=== PATIENT | female | born 1985 | race Caucasian/White ===

== ENCOUNTER 2022-01-12 08:24 | Emergency (ER) | payer MEDICAID, OTHER ==
[~2022-01-12] VITALS: Ht 162.6 cm; Wt 54.9 kg
--- NOTE | 2022-01-12 08:42 | ED GU-Female ---
General Chief Complaint: OB < 20 WEEKS Stated Complaint: LOWER BACK RIGHT SIDE PAIN 13 WKS PREG History of Present Illness Date Seen by Provider: Jan 12, 2022 Time Seen by Provider: 08:39 Initial Comments 36-year-old primigravida with LMP of October 11 with JED of 07/18/21, is here with c/o right flank pain and RLQ and linda-umbilical pain which began yesterday evening and is worsening. Pt has had a history of kidney stones in her teens. Pt has been drinking enough water intermittently with periods of not drinking enough water. Pt had one episode of vomiting yesterday. Denies fever, diarrhea, nausea, constipation, chest pain, vaginal bleeding or discharge, hematuria. Allergies and Home Medications Allergies Coded Allergies: codeine (Verified Allergy, Unknown, 01/12/22) lidocaine (Verified Allergy, Unknown, 01/12/22) Patient Home Medication List Home Medication List Reviewed: Yes Review of Systems Review of Systems Constitutional: no symptoms reported EENTM: no symptoms reported Respiratory: no symptoms reported Cardiovascular: no symptoms reported Gastrointestinal: abdominal pain, vomiting Genitourinary: flank pain Musculoskeletal: no symptoms reported Skin: no symptoms reported Psychiatric/Neurological: No Symptoms Reported Endocrine: No Symptoms Reported Hematologic/Lymphatic: No Symptoms Reported Physical Exam Vital Signs Vital Signs - First Documented 01/12/22 08:30 Temp 36.5 Pulse 87 Resp 16 B/P (MAP) 122/86 (98) Pulse Ox 99 O2 Delivery Room Air Capillary Refill : Height, Weight, BMI Height: '" Weight: lbs. oz. kg; BMI Method: General Appearance: WD/WN, no apparent distress HEENT: PERRL/EOMI Neck: non-tender, full range of motion, supple Cardiovascular: normal peripheral pulses, regular rate, rhythm Respiratory: chest non-tender, lungs clear Gastrointestinal: normal bowel sounds, soft, no organomegaly, tenderness (CVA tenderness as well as RLQ tenderness, and periumbilical tenderness) Back: normal inspection, CVA tenderness (R) Extremities: normal range of motion Neurologic/Psychiatric: alert, normal mood/affect, oriented x 3 Skin: normal color Progress/Results/Core Measures Suspected Sepsis SIRS Temperature: Pulse: Respiratory Rate: Laboratory Tests 01/12/22 09:00: White Blood Count 20.3H Blood Pressure / Mean: Laboratory Tests 01/12/22 09:00: Creatinine 0.52L, Platelet Count 214, Total Bilirubin 0.3 Results/Orders Lab Results Laboratory Tests Test 01/12/22 08:30 01/12/22 09:00 Range/Units Urine Color YELLOW Urine Clarity CLEAR Urine pH 6.0 5-9 Urine Specific [place] >=1.030 1.016-1.022 Urine Protein 1+ H NEGATIVE Urine Glucose (UA) NEGATIVE NEGATIVE Urine Ketones NEGATIVE NEGATIVE Urine Nitrite NEGATIVE NEGATIVE Urine Bilirubin NEGATIVE NEGATIVE Urine Urobilinogen 0.2 < = 1.0 MG/DL Urine Leukocyte Esterase NEGATIVE NEGATIVE Urine RBC (Auto) 3+ H NEGATIVE Urine RBC 10-25 H /HPF Urine WBC 0-2 /HPF Urine Squamous Epithelial Cells NONE /HPF Urine Crystals NONE /LPF Urine Bacteria TRACE /HPF Urine Casts NONE /LPF Urine Mucus LARGE H /LPF Urine Culture Indicated NO Urine Opiates Screen NEGATIVE NEGATIVE Urine Oxycodone Screen NEGATIVE NEGATIVE Urine Methadone Screen NEGATIVE NEGATIVE Urine Propoxyphene Screen NEGATIVE NEGATIVE Urine Barbiturates Screen NEGATIVE NEGATIVE Ur Tricyclic Antidepressants Screen NEGATIVE NEGATIVE Urine Phencyclidine Screen NEGATIVE NEGATIVE Urine Amphetamines Screen NEGATIVE NEGATIVE Urine Methamphetamines Screen NEGATIVE NEGATIVE Urine Benzodiazepines Screen NEGATIVE NEGATIVE Urine Cocaine Screen NEGATIVE NEGATIVE Urine Cannabinoids Screen POSITIVE H NEGATIVE White Blood Count 20.3 H 4.3-11.0 10^3/uL Red Blood Count 4.34 3.80-5.11 10^6/uL Hemoglobin 13.5 11.5-16.0 g/dL Hematocrit 38 35-52 % Mean Corpuscular Volume 88 80-99 fL Mean Corpuscular Hemoglobin 31 25-34 pg Mean Corpuscular Hemoglobin Concent 35 32-36 g/dL Red Cell Distribution Width 13.0 10.0-14.5 % Platelet Count 214 130-400 10^3/uL Mean Platelet Volume 9.9 9.0-12.2 fL Immature Granulocyte % (Auto) 1 % Neutrophils (%) (Auto) 85 H 42-75 % Lymphocytes (%) (Auto) 7 L 12-44 % Monocytes (%) (Auto) 5 0-12 % Eosinophils (%) (Auto) 1 0-10 % Basophils (%) (Auto) 0 0-10 % Neutrophils # (Auto) 17.4 H 1.8-7.8 10^3/uL Lymphocytes # (Auto) 1.5 1.0-4.0 10^3/uL Monocytes # (Auto) 1.0 0.0-1.0 10^3/uL Eosinophils # (Auto) 0.3 0.0-0.3 10^3/uL Basophils # (Auto) 0.1 0.0-0.1 10^3/uL Immature Granulocyte # (Auto) 0.1 0.0-0.1 10^3/uL Neutrophils % (Manual) 88 % Lymphocytes % (Manual) 7 % Monocytes % (Manual) 3 % Eosinophils % (Manual) 2 % Sodium Level 137 135-145 MMOL/L Potassium Level 3.8 3.6-5.0 MMOL/L Chloride Level 106 98-107 MMOL/L Carbon Dioxide Level 21 21-32 MMOL/L Anion Gap 10 5-14 MMOL/L Blood Urea Nitrogen 6 L 7-18 MG/DL Creatinine 0.52 L 0.60-1.30 MG/DL Estimat Glomerular Filtration Rate 124 BUN/Creatinine Ratio 12 Glucose Level 102 70-105 MG/DL Calcium Level 9.4 8.5-10.1 MG/DL Corrected Calcium 9.3 8.5-10.1 MG/DL Magnesium Level 1.7 1.6-2.4 MG/DL Total Bilirubin 0.3 0.1-1.0 MG/DL Aspartate Amino Transf (AST/SGOT) 18 5-34 U/L Alanine Aminotransferase (ALT/SGPT) 17 0-55 U/L Alkaline Phosphatase 60 40-136 U/L Total Protein 6.4 6.4-8.2 GM/DL Albumin 4.1 3.2-4.5 GM/DL My Orders Orders - SARA VALDEZ MD Urinalysis (01/12/22 08:30) Cbc With Automated Diff (01/12/22 08:44) Comprehensive Metabolic Panel (01/12/22 08:44) Drug Screen Stat (Urine) (01/12/22 08:44) Magnesium (01/12/22 08:44) Manual Differential (01/12/22 09:00) Vital Signs/I&O 01/12/22 08:30 Temp 36.5 Pulse 87 Resp 16 B/P (MAP) 122/86 (98) Pulse Ox 99 O2 Delivery Room Air Capillary Refill : Progress Note : Progress Note 1. PRIMIGRAVIDA: RIGHT FLANK PAIN & ABDOMINAL PAIN: MARIJUANA ABUSE - UA is positive for RBCs only -CBC: WBC is elevated at 20 with a positive left shift - UDS: Positive for marijuana - Pt cannot have CT due to , willneed ultrasound abdomen which we do not have in [facility] today, so will transfer to [facility] to have an ultrasound . Although kidney stone is likely, still need to rule out other abdominal pathology, and abdominal pain may also be due to just to marijuana use - Advised not to use marijuana or any other drugs while Departure Impression Primary Impression: Flank pain in patient Additional Impression: Marijuana abuse Disposition: 02 XFER SHT-TRM HOSP Condition: Stable Transfer Transfer Reason: Exceeds level of care Time Spoke to Accepting Phy: 09:37 Transfer Progress Notes Will transfer to [place] ER for ultrasound . Discussed with Dr Fitch and accepted for ER to ER transfer Transfer Facility: [facility] Method of Transfer: Private Vehicle Departure-Patient Inst. Referrals: MIKE PENA MD (PCP/Family) Primary Care Physician SARA VALDEZ MD Jan 12, 2022 08:42
[2022-01-12 08:46] LABS: BACTERIA,URINE TRACE /HPF; BILIRUBIN,URINE NEGATIVE (NEGATIVE); CLARITY,URINE CLEAR; COLOR,URINE YELLOW; GLUCOSE, URINE (UA) NEGATIVE (NEGATIVE); KETONES,URINE NEGATIVE (NEGATIVE); LEUKOCYTE ESTERASE ,URINE NEGATIVE (NEGATIVE); NITRITE,URINE NEGATIVE (NEGATIVE); PROTEIN,URINE 1+ (NEGATIVE); WBC,URINE 0-2 /HPF
[2022-01-12 09:04] LABS: BASOPHILS # (AUTO) 0.1 10^3/uL (0.0-0.1); BASOPHILS % (AUTO) 0 % (0-10); EOSINOPHILS # (AUTO) 0.3 10^3/uL (0.0-0.3); EOSINOPHILS % (AUTO) 1 % (0-10); HEMATOCRIT 38 % (35-52); HEMOGLOBIN 13.5 g/dL (11.5-16.0); LYMPHOCYTES # (AUTO) 1.5 10^3/uL (1.0-4.0); LYMPHOCYTES % (AUTO) 7 % (12-44); MEAN CORPUSCULAR HEMOGLOBIN 31 pg (25-34); MEAN CORPUSCULAR HGB CONC 35 g/dL (32-36); MEAN CORPUSCULAR VOLUME 88 fL (80-99); MEAN PLATELET VOLUME 9.9 fL (9.0-12.2); MONOCYTES % (AUTO) 5 % (0-12); NEUTROPHILS # (AUTO) 17.4 10^3/uL (1.8-7.8); NEUTROPHILS % (AUTO) 85 % (42-75); PLATELET COUNT 214 10^3/uL (130-400); WHITE BLOOD COUNT 20.3 10^3/uL (4.3-11.0)
[2022-01-12 09:10] LABS: AMPHETAMINE SCREEN, URINE NEGATIVE (NEGATIVE); BARBITURATE SCREEN URINE NEGATIVE (NEGATIVE); BENZODIAZEPINES SCREEN URINE NEGATIVE (NEGATIVE); CANNABINOID SCREEN, URINE POSITIVE (NEGATIVE); COCAINE SCREEN URINE NEGATIVE (NEGATIVE); METHADONE STAT NEGATIVE (NEGATIVE); OPIATE SCREEN URINE NEGATIVE (NEGATIVE); OXYCODONE STAT NEGATIVE (NEGATIVE); PROPOXYPHENE STAT NEGATIVE (NEGATIVE); TRICYCLIC ANTIDEPRESSANTS SCRE NEGATIVE (NEGATIVE)
[2022-01-12 09:21] LABS: EOSINOPHILS % (MANUAL) 2 %; LYMPHOCYTES % (MANUAL) 7 %; MONOCYTES % (MANUAL) 3 %; NEUTROPHILS % (MANUAL) 88 %
[2022-01-12 09:24] LABS: ALBUMIN 4.1 GM/DL (3.2-4.5); BILIRUBIN,TOTAL 0.3 MG/DL (0.1-1.0); CALCIUM 9.4 MG/DL (8.5-10.1); CREATININE SERUM 0.52 MG/DL (0.60-1.30); MAGNESIUM 1.7 MG/DL (1.6-2.4); POTASSIUM 3.8 MMOL/L (3.6-5.0); TOTAL PROTEIN 6.4 GM/DL (6.4-8.2)
[2022-01-12] MEDS ORDERED: ONDANSETRON 4 MG (ZOFRAN) ORAL DISSOLVE TAB PO STA (09:29)
[2022-01-12] MEDS ORDERED: ONDANSETRON 4 MG (ZOFRAN) ORAL DISSOLVE TAB ONE (09:35)
[2022-01-12] MEDS ORDERED: NS IV 1000 ML 1,000 ML IV STA (11:13)
[2022-01-12] MEDS ORDERED: morphine INJ 10 MG/ML 1ML (SYR OR VIAL) IVP ONE ×2 (11:15→12:30)
--- NOTE | 2022-01-12 11:19 | ED GU-Female ---
General Chief Complaint: OB < 20 WEEKS Stated Complaint: LOWER BACK RIGHT SIDE PAIN 13 WKS PREG Nursing Triage Note: Patient reports she is 13 weeks , states this is her first . She states she began having right lower back pain, nausea/vomiting, and lower abdominal cramping yesterday afternoon. She reports her symptoms are intermittent, denies any unusual vaginal discharge or bleeding. Source: patient Exam Limitations: no limitations History of Present Illness Date Seen by Provider: Jan 12, 2022 Time Seen by Provider: 11:16 Initial Comments Patient is a 36-year-old female who presents the ED with right flank pain. This pain started yesterday evening described as sharp. Pain eventually improved and become intermittent throughout the night. Pain became constant today with some pain in her right lower quadrant. She is currently 13 weeks . Denies of any urinary symptoms, vaginal bleeding or vaginal discharge. She is currently following up with Dr. Landeros [employer] in the [facility]. Patient Was seen at the ER at [place] was transferred here for ultrasound. She did have notable hematuria with an elevated white blood count of 20. Normal kidney function. Patient is requesting something for pain. Was given Zofran with improvement of her nausea. She did vomited 2 or 3 times a day secondary to pain. History of kidney stones and states this feels very similar to her kidney stone. Allergies and Home Medications Allergies Coded Allergies: codeine (Verified Allergy, Unknown, 01/12/22) lidocaine (Verified Allergy, Unknown, 01/12/22) Patient Home Medication List Home Medication List Reviewed: Yes Hydrocodone/Acetaminophen (Hydrocodone-Acetamin 5-325 mg) 5 Mg-325 Mg Tablet, 1 TAB PO Q4H PRN for PAIN-MODERATE (5-7) Prescribed by: HENRIETTA CORONEL on 01/12/22 1420 Metoclopramide HCl (Reglan) 10 Mg Tablet, 10 MG PO TID PRN for NAUSEA-1ST LINE Prescribed by: HENRIETTA CORONEL on 01/12/22 1420 Review of Systems Review of Systems Constitutional: No chills, No diaphoresis, No weakness EENTM: No blurred vision, No double vision Respiratory: No cough, No dyspnea on exertion Cardiovascular: No chest pain Gastrointestinal: abdominal pain; No diarrhea; nausea, vomiting Genitourinary: denies burning, denies frequency; hematuria Musculoskeletal: back pain; No joint pain, No muscle stiffness, No muscle cramps Skin: No change in color, No change in hair/nails All Other Systemes Reviewed Negative Unless Noted: Yes Past Epzbghj-Sqkhvn-Xbzwse Hx Patient Social History Tobacco Use?: Yes Tobacco type used: Cigarettes Smoking Status: Current Everyday Smoker Substance use?: No Alcohol Use?: No Pt feels they are or have been: No Past Medical History Surgery/Hospitalization HX: MS Last Menstrual Period: October 11, 2021 Physical Exam Vital Signs Vital Signs - First Documented 01/12/22 08:30 Temp 36.5 Pulse 87 Resp 16 B/P (MAP) 122/86 (98) Pulse Ox 99 O2 Delivery Room Air Capillary Refill : Less Than 3 Seconds Height, Weight, BMI Height: '" Weight: lbs. oz. kg; 20.00 BMI Method: General Appearance: WD/WN, no apparent distress HEENT: PERRL/EOMI, normal ENT inspection, TMs normal, pharynx normal Neck: non-tender, full range of motion, supple, normal inspection Cardiovascular: regular rate, rhythm, no edema, no gallop, no JVD Respiratory: chest non-tender, lungs clear, normal breath sounds, no respiratory distress, no accessory muscle use Gastrointestinal: normal bowel sounds, soft, no organomegaly, tenderness (Minimal right lower quadrant tenderness) Extremities: normal range of motion, non-tender, normal inspection Neurologic/Psychiatric: mascara molder II-XII nml as tested, no motor/sensory deficits, alert, normal mood/affect, oriented x 3 Skin: normal color, warm/dry Progress/Results/Core Measures Suspected Sepsis SIRS Temperature: Pulse: 91 Respiratory Rate: 16 Laboratory Tests 01/12/22 09:00: White Blood Count 20.3H Blood Pressure 118 /72 Mean: 101 Laboratory Tests 01/12/22 09:00: Creatinine 0.52L, Platelet Count 214, Total Bilirubin 0.3 Results/Orders Lab Results Laboratory Tests Test 01/12/22 08:30 01/12/22 09:00 Range/Units Urine Color YELLOW Urine Clarity CLEAR Urine pH 6.0 5-9 Urine Specific [place] >=1.030 1.016-1.022 Urine Protein 1+ H NEGATIVE Urine Glucose (UA) NEGATIVE NEGATIVE Urine Ketones NEGATIVE NEGATIVE Urine Nitrite NEGATIVE NEGATIVE Urine Bilirubin NEGATIVE NEGATIVE Urine Urobilinogen 0.2 < = 1.0 MG/DL Urine Leukocyte Esterase NEGATIVE NEGATIVE Urine RBC (Auto) 3+ H NEGATIVE Urine RBC 10-25 H /HPF Urine WBC 0-2 /HPF Urine Squamous Epithelial Cells NONE /HPF Urine Crystals NONE /LPF Urine Bacteria TRACE /HPF Urine Casts NONE /LPF Urine Mucus LARGE H /LPF Urine Culture Indicated NO Urine Opiates Screen NEGATIVE NEGATIVE Urine Oxycodone Screen NEGATIVE NEGATIVE Urine Methadone Screen NEGATIVE NEGATIVE Urine Propoxyphene Screen NEGATIVE NEGATIVE Urine Barbiturates Screen NEGATIVE NEGATIVE Ur Tricyclic Antidepressants Screen NEGATIVE NEGATIVE Urine Phencyclidine Screen NEGATIVE NEGATIVE Urine Amphetamines Screen NEGATIVE NEGATIVE Urine Methamphetamines Screen NEGATIVE NEGATIVE Urine Benzodiazepines Screen NEGATIVE NEGATIVE Urine Cocaine Screen NEGATIVE NEGATIVE Urine Cannabinoids Screen POSITIVE H NEGATIVE White Blood Count 20.3 H 4.3-11.0 10^3/uL Red Blood Count 4.34 3.80-5.11 10^6/uL Hemoglobin 13.5 11.5-16.0 g/dL Hematocrit 38 35-52 % Mean Corpuscular Volume 88 80-99 fL Mean Corpuscular Hemoglobin 31 25-34 pg Mean Corpuscular Hemoglobin Concent 35 32-36 g/dL Red Cell Distribution Width 13.0 10.0-14.5 % Platelet Count 214 130-400 10^3/uL Mean Platelet Volume 9.9 9.0-12.2 fL Immature Granulocyte % (Auto) 1 % Neutrophils (%) (Auto) 85 H 42-75 % Lymphocytes (%) (Auto) 7 L 12-44 % Monocytes (%) (Auto) 5 0-12 % Eosinophils (%) (Auto) 1 0-10 % Basophils (%) (Auto) 0 0-10 % Neutrophils # (Auto) 17.4 H 1.8-7.8 10^3/uL Lymphocytes # (Auto) 1.5 1.0-4.0 10^3/uL Monocytes # (Auto) 1.0 0.0-1.0 10^3/uL Eosinophils # (Auto) 0.3 0.0-0.3 10^3/uL Basophils # (Auto) 0.1 0.0-0.1 10^3/uL Immature Granulocyte # (Auto) 0.1 0.0-0.1 10^3/uL Neutrophils % (Manual) 88 % Lymphocytes % (Manual) 7 % Monocytes % (Manual) 3 % Eosinophils % (Manual) 2 % Sodium Level 137 135-145 MMOL/L Potassium Level 3.8 3.6-5.0 MMOL/L Chloride Level 106 98-107 MMOL/L Carbon Dioxide Level 21 21-32 MMOL/L Anion Gap 10 5-14 MMOL/L Blood Urea Nitrogen 6 L 7-18 MG/DL Creatinine 0.52 L 0.60-1.30 MG/DL Estimat Glomerular Filtration Rate 124 BUN/Creatinine Ratio 12 Glucose Level 102 70-105 MG/DL Calcium Level 9.4 8.5-10.1 MG/DL Corrected Calcium 9.3 8.5-10.1 MG/DL Magnesium Level 1.7 1.6-2.4 MG/DL Total Bilirubin 0.3 0.1-1.0 MG/DL Aspartate Amino Transf (AST/SGOT) 18 5-34 U/L Alanine Aminotransferase (ALT/SGPT) 17 0-55 U/L Alkaline Phosphatase 60 40-136 U/L Total Protein 6.4 6.4-8.2 GM/DL Albumin 4.1 3.2-4.5 GM/DL My Orders Orders - ASHLEIGH MERRITT Iv 1000 Ml (Sodium Chloride 0.9%) (01/12/22 11:13) Iv/Invasive Line Insertion .IV start (01/12/22 11:13) Us Renal Bilateral [id number] (01/12/22 11:14) Morphine Injection (Morphine Injection (01/12/22 11:15) Ondansetron Injection (Zofran Injectio (01/12/22 11:45) Metoclopramide Injection (Reglan Injecti (01/12/22 12:30) Morphine Injection (Morphine Injection (01/12/22 12:30) Medications Given in ED Current Medications Medications Dose Ordered Sig/Elijah Route Start Time Stop Time Status Last Admin Dose Admin Metoclopramide HCl 10 mg ONCE ONCE IVP 01/12/22 12:30 01/12/22 12:31 DC 01/12/22 12:33 10 MG Morphine Sulfate 4 mg ONCE ONCE IVP 01/12/22 11:15 01/12/22 11:16 DC 01/12/22 11:26 4 MG Morphine Sulfate 4 mg ONCE ONCE IVP 01/12/22 12:30 01/12/22 12:31 DC 01/12/22 12:33 4 MG Ondansetron HCl 4 mg ONCE ONCE IVP 01/12/22 11:45 01/12/22 11:46 DC 01/12/22 11:38 4 MG Vital Signs/I&O 01/12/22 01/12/22 01/12/22 01/12/22 08:30 09:55 10:53 11:26 Temp 36.5 36.1 36.1 Pulse 87 91 69 Resp 16 16 18 B/P (MAP) 122/86 (98) 118/72 (87) 126/88 Pulse Ox 99 99 100 O2 Delivery Room Air Room Air Room Air 01/12/22 01/12/22 12:33 14:30 Temp 36.1 36.1 Pulse 80 Resp 18 B/P (MAP) 116/80 Pulse Ox 100 O2 Delivery Room Air Capillary Refill : Less Than 3 Seconds Blood Pressure Mean: 101 Departure Communication (PCP) Patient was brought to the ED by POV from [facility] for ultrasound concerning for kidney stone. Patient urinalysis positive hematuria. Slight elevated white blood count but normal kidney function. She was having pain here was given 2 rounds of IV morphine, liter fluids and Zofran. This was discussed with Dr. Ramirez [employer] on-call before narcotic was provided. She recommend doing the ultrasound to rule out kidney stone. Did have some mild right hydronephrosis. She is currently 13 weeks . cardiac activity no zoya. No vaginal bleeding or vaginal discharge. She did have some mild right- sided lower abdominal tenderness but most of her pain is in her right flank. Concerning for obstructing ureter stone. History of similar pain with kidney stone. Patient was discussed with Dr. Garza urologist at [facility] who recommends just hydration. If pain continues patient will just need a ureter stent. Patient will follow up with Dr. Daley. If worsening abdominal pain, decreased urine output, passing of blood clots return back to ED. Will discharge with nausea medication and few days worth of stronger pain medication. She understands her risk of narcotics while . Impression Primary Impression: Ureterolithiasis Disposition: HOME, SELF-CARE Condition: Stable Transfer Transfer Reason: Exceeds level of care Time Spoke to Accepting Phy: 09:37 Departure-Patient Inst. Decision time for Depature: 14:19 Referrals: SELF,MIKE JOHNSTON (PCP/Family) Primary Care Physician FRANCO DALEY MD Patient Instructions: Kidney Stone, Adult ED Scripts Hydrocodone/Acetaminophen (Hydrocodone-Acetamin 5-325 mg) 5 Mg-325 Mg Tablet 1 TAB PO Q4H PRN for PAIN-MODERATE (5-7), #6 TAB Prov: ASHLEIGH MERRITT 01/12/22 Metoclopramide HCl (Reglan) 10 Mg Tablet 10 MG PO TID PRN for NAUSEA-1ST LINE, #12 TAB Prov: ASHLEIGH MERRITT 01/12/22 ASHLEIGH MERRITT Jan 12, 2022 11:19
[2022-01-12] MEDS ORDERED: ONDANSETRON 4 MG/2 ML (SDV) Z0FRAN IVP ONE (11:45)
[2022-01-12] MEDS ORDERED: METOCLOPRAMIDE INJ 10 MG/2 ML (REGLAN) IVP ONE (12:30)
--- NOTE | 2022-01-12 12:55 | Diagnostic Imaging Report ---
EXAM: RENAL ULTRASOUND DATE: January 12, 2022. COMPARISON: None. INDICATION: 36-year-old female, history of renal stones. Abdominal pain. The patient is 13 weeks . PROCEDURE: Two-dimensional grayscale and color doppler examination of the kidneys is performed. FINDINGS: Right kidney: There is no demonstrated right renal mass. There is mild right hydronephrosis. The right kidney measures 11.5 cm x 5.2 x 6.1 cm. Left kidney: Unremarkable left kidney. No hydronephrosis. The left kidney measures 11.4 cm x 5.3 x 5.6 cm. Bladder: Unremarkable. Ultrasound is limited for evaluation of renal stones. There is no definite renal stone demonstrated. IMPRESSION: 1. Mild right hydronephrosis. 2. No left hydronephrosis. 3. Unremarkable sonographic appearance of the renal parenchyma. 4. Unremarkable appearance of the urinary bladder. Dictated by: Dictated on workstation # [id number]
[2022-01-12] MEDS ORDERED: ACHD5005 PO (14:20)
[2022-01-12] MEDS ORDERED: METO-310 PO (14:20)
[2022-01-12 14:30] VITALS: BP 116/80
== END 2022-01-12 14:29 | disposition home or self-care (01) ==
LOC: EDUNIT# 08:24 → ER 08:28
DX: O26.831 Pregnancy related renal disease, first trimester (principal); N13.2 Hydronephrosis with renal and ureteral calculous obstruction; O99.331 Smoking (tobacco) complicating pregnancy, first trimester; Z3A.13 13 weeks gestation of pregnancy; Z28.310 Unvaccinated for COVID-19
CPT/HCPCS: 36415; 76770; 80053; 80306; 81000; 83735; 85007; 85027

== ENCOUNTER 2022-01-18 23:27 | Emergency (ER) | payer MEDICAID ==
[~2022-01-18 23:27] MED LIST: ACHD5005 PO; METO-310 PO
--- NOTE | 2022-01-19 00:30 | ED GU-Female ---
General Chief Complaint: - Reproductive Stated Complaint: R SIDE KIDNEY PAIN,14 WKS ,NAUSEA Nursing Triage Note: TO ED VIA POV AND AMBULATORY TO FT3 WITH C/O RIGHT FLANK PAIN. Source: patient History of Present Illness Date Seen by Provider: Jan 19, 2022 Time Seen by Provider: 00:07 Allergies and Home Medications Allergies Coded Allergies: codeine (Verified Allergy, Unknown, 01/12/22) lidocaine (Verified Allergy, Unknown, 01/12/22) Patient Home Medication List Hydrocodone/Acetaminophen (Hydrocodone-Acetamin 5-325 mg) 5 Mg-325 Mg Tablet, 1 TAB PO Q4H PRN for PAIN-MODERATE (5-7) Prescribed by: HENRIETTA CORONEL on 01/12/22 1420 Metoclopramide HCl (Reglan) 10 Mg Tablet, 10 MG PO TID PRN for NAUSEA-1ST LINE Prescribed by: HENRIETTA CORONEL on 01/12/22 1420 Review of Systems Review of Systems Expected Date of Delivery: Jul 18, 2022 Past Azzvojs-Qkipra-Rcslmg Hx Patient Social History Tobacco Use?: Yes Tobacco type used: Cigarettes Smoking Status: Current Everyday Smoker Substance use?: Yes Substance type: Marijuana Alcohol Use?: No Past Medical History Surgery/Hospitalization HX: MS Expected Date of Delivery: Jul 18, 2022 Physical Exam Vital Signs Vital Signs - First Documented 01/19/22 00:00 Temp 36.0 Pulse 89 Resp 16 B/P (MAP) 117/83 (94) Pulse Ox 100 O2 Delivery Room Air Capillary Refill : Less Than 3 Seconds Height, Weight, BMI Height: '" Weight: lbs. oz. kg; 20.00 BMI Method: Progress/Results/Core Measures Suspected Sepsis SIRS Temperature: Pulse: 89 Respiratory Rate: 16 Blood Pressure 117 /83 Mean: 94 Results/Orders Lab Results Laboratory Tests Test 01/18/22 23:34 Range/Units Urine Color YELLOW Urine Clarity CLEAR Urine pH 6.0 5-9 Urine Specific [place] 1.025 H 1.016-1.022 Urine Protein NEGATIVE NEGATIVE Urine Glucose (UA) NEGATIVE NEGATIVE Urine Ketones TRACE H NEGATIVE Urine Nitrite NEGATIVE NEGATIVE Urine Bilirubin NEGATIVE NEGATIVE Urine Urobilinogen 0.2 < = 1.0 MG/DL Urine Leukocyte Esterase NEGATIVE NEGATIVE Urine RBC (Auto) 1+ H NEGATIVE Urine RBC 5-10 H /HPF Urine WBC NONE /HPF Urine Squamous Epithelial Cells 2-5 /HPF Urine Crystals NONE /LPF Urine Bacteria TRACE /HPF Urine Casts NONE /LPF Urine Mucus SMALL H /LPF Urine Culture Indicated NO Urine Opiates Screen NEGATIVE NEGATIVE Urine Oxycodone Screen NEGATIVE NEGATIVE Urine Methadone Screen NEGATIVE NEGATIVE Urine Propoxyphene Screen NEGATIVE NEGATIVE Urine Barbiturates Screen NEGATIVE NEGATIVE Ur Tricyclic Antidepressants Screen NEGATIVE NEGATIVE Urine Phencyclidine Screen NEGATIVE NEGATIVE Urine Amphetamines Screen NEGATIVE NEGATIVE Urine Methamphetamines Screen NEGATIVE NEGATIVE Urine Benzodiazepines Screen NEGATIVE NEGATIVE Urine Cocaine Screen NEGATIVE NEGATIVE Urine Cannabinoids Screen POSITIVE H NEGATIVE My Orders Orders - CINDY,ALEXANDER K DO Drug Screen Stat (Urine) (01/19/22 00:08) Ua Culture If Indicated (01/19/22 00:08) Vital Signs/I&O 01/19/22 00:00 Temp 36.0 Pulse 89 Resp 16 B/P (MAP) 117/83 (94) Pulse Ox 100 O2 Delivery Room Air Capillary Refill : Less Than 3 Seconds Blood Pressure Mean: 94 Departure Impression Primary Impression: Flank pain in patient Additional Impressions: Marijuana abuse Hydronephrosis of right kidney SUSPECTED KIDNEY STONE HX OF KIDNEY STONES Disposition: HOME, SELF-CARE Condition: Stable Departure-Patient Inst. Decision time for Depature: 01:14 Referrals: SELFMIKE MD (PCP/Family) Primary Care Physician FRANCO DALEY MD Patient Instructions: Flank Pain ED, Kidney Stone, Adult ED Add. Discharge Instructions: STRAIN ALL URINE--RETURN ANY STONES TO DR. DALEY'S OFFICE FOLLOW UP WITH DR. DALEY NEXT WEEK FOR FURTHER CARE, CALL ON FRIDAY TO SCHEDULE APPOINTMENT RETURN TO ER IF SYMPTOMS WORSEN All discharge instructions reviewed with patient and/or family. Voiced understanding. Scripts Metoclopramide HCl (Reglan) 10 Mg Tablet 10 MG PO Q6H for Nausea/Vomiting, #10 TAB Prov: CINDY,ALEXANDER K DO 01/19/22 Hydrocodone/Acetaminophen (Hydrocodone-Acetamin 10-325 mg) 10 Mg-325 Mg Tablet 1 EACH PO Q4H for Pain, #15 TAB Prov: CINDY,ALEXANDER K DO 01/19/22 CINDY,ALEXANDER K DO Jan 19, 2022 00:30
[2022-01-19 00:48] LABS: BILIRUBIN,URINE NEGATIVE (NEGATIVE); CLARITY,URINE CLEAR; COLOR,URINE YELLOW; GLUCOSE, URINE (UA) NEGATIVE (NEGATIVE); KETONES,URINE TRACE (NEGATIVE); LEUKOCYTE ESTERASE ,URINE NEGATIVE (NEGATIVE); NITRITE,URINE NEGATIVE (NEGATIVE); PROTEIN,URINE NEGATIVE (NEGATIVE)
[2022-01-19 00:54] LABS: BACTERIA,URINE TRACE /HPF
[2022-01-19 01:12] LABS: AMPHETAMINE SCREEN, URINE NEGATIVE (NEGATIVE); BARBITURATE SCREEN URINE NEGATIVE (NEGATIVE); BENZODIAZEPINES SCREEN URINE NEGATIVE (NEGATIVE); CANNABINOID SCREEN, URINE POSITIVE (NEGATIVE); COCAINE SCREEN URINE NEGATIVE (NEGATIVE); METHADONE STAT NEGATIVE (NEGATIVE); OPIATE SCREEN URINE NEGATIVE (NEGATIVE); OXYCODONE STAT NEGATIVE (NEGATIVE); PROPOXYPHENE STAT NEGATIVE (NEGATIVE); TRICYCLIC ANTIDEPRESSANTS SCRE NEGATIVE (NEGATIVE)
[2022-01-19] MEDS ORDERED: METO-310 PO (01:17)
[2022-01-19] MEDS ORDERED: HYDR-3820 PO (01:17)
[2022-01-19 01:26] VITALS: BP 117/83
== END 2022-01-19 01:29 | disposition home or self-care (01) ==
LOC: EDUNIT# 23:27 → ER 23:29
DX: O99.891 Other specified diseases and conditions complicating pregnancy (principal); N13.30 Unspecified hydronephrosis; O99.322 Drug use complicating pregnancy, second trimester; F12.10 Cannabis abuse, uncomplicated; O99.332 Smoking (tobacco) complicating pregnancy, second trimester; F17.210 Nicotine dependence, cigarettes, uncomplicated; Z87.442 Personal history of urinary calculi; Z3A.14 14 weeks gestation of pregnancy; Z28.310 Unvaccinated for COVID-19
CPT/HCPCS: 80306; 81000; 99283